=== PATIENT | male | born 1980 | race Caucasian/White ===

== ENCOUNTER 2018-01-09 11:06 | Day surgery (SDC) | payer OTHER, SELFPAY ==
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
--- NOTE | 2018-01-09 08:34 | PM.PREOP ---
Pre-operative Note Interval Note Pre-op Check: Yes History & Physical Reviewed by Physician and Yes Exam Performed Changes: No
[2018-01-09 08:39] VITALS: BMI 32.1
[2018-01-09 11:56] VITALS: BP 134/83; PULSE 65; RESP 15; TEMP 36; O2SAT 98; BMI 32.1
--- NOTE | 2018-01-09 13:30 | SUR.OPER ---
Supine on padded OR bed, head on pillow, arms secured on padded arm boards at <90 degrees abduction, legs uncrossed, safety belt at thigh, tape over blanket over lower legs.
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
[2018-01-09] MEDS: CLINDAMYCIN 900 MG/50 ML PIGGYBACK 5000 MG IV (14:10)
--- NOTE | 2018-01-09 14:10 | SUR.PREOP ---
Block start time [1352] . Monitoring initiated and maintained throughout procedure. Oxygen and medications given per anesthesiologist instructions. Patient remained stable throughout procedure, no adverse reactions noted. Block end time [1400]. pt remained stable and taken directly into the or by circulating rn after completion of block.
--- NOTE | 2018-01-09 14:50 | SUR.OPER ---
Supine on padded OR bed, head on pillow, arms secured on padded arm boards at <90 degrees abduction, legs uncrossed, safety belt at LOWER ABDOMEN, tape over blanket over LEFT lower leg. BUMP UNDER RIGHT HIP PER MD
--- NOTE | 2018-01-09 14:51 | PM.PROC.1 ---
Procedures Date/Time Date of procedure: 01/09/18 Time of procedure: 14:00 General Procedure description: Ultrasound guided popliteal sciatic nerve block for post op pain control after right ankle surgery requested by Dr. Perrin. Risk and benefits of procedure discussed with patient. ASA monitoring applied to patient. Oxygen given via nasal cannula. 1 mg Versed and 50 mcg fentanyl given for procedural sedation. Skin site was prepped with chlorhexidine and allowed to fully dry. Sterile gloves, mask, hat and probe cover were used to maintain sterility. 2% lidocaine and 30ga needle was used to make a small skin wheal at needle insertion site. Under ultrasound guidance, a 21ga 100mm Pajunk needle was directed near the division of the sciatic nerve into tibial and peroneal nerve in the popliteal fossa (lateral approach). Patient reported no parasthesias. After negative aspiration, 20 mL 0.5% ropivicaine and 10mg dexamethasone were injected around sciatic nerve. Patient tolerated procedure well.
[2018-01-09] MEDS: BUPIVACAINE 0.25% (PF) VIAL 30 ML INJ (15:00)
[2018-01-09 17:24] VITALS: BP 112/77; PULSE 80; RESP 13; TEMP 36.3; O2SAT 96
[2018-01-09 17:30] VITALS: BP 98/70; PULSE 82; RESP 14; O2SAT 96
[2018-01-09] MEDS: LACTATED RINGERS 1,000 ML 42 ML IV (17:33)
[2018-01-09 17:36] VITALS: BP 120/69; PULSE 92; RESP 15; TEMP 36.3; O2SAT 96
[2018-01-09 17:41] VITALS: BP 115/65; PULSE 91; RESP 17; TEMP 36.1; O2SAT 96
[2018-01-09 17:50] VITALS: BP 113/75; PULSE 85; RESP 16; TEMP 36.3; O2SAT 97
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
== END 2018-01-09 18:04 | disposition home or self-care (01) ==
PROVIDERS: Visit Provider Orthopaedic Surgery
PROC: 0SSF04Z Reposition Right Ankle Joint with Internal Fixation Device, Open Approach (ICD-10-PCS; CPT 27822; principal; 2018-01-09 13:15)
DX: S82.841P Displaced bimalleolar fracture of right lower leg, subsequent encounter for closed fracture with malunion (principal); G89.18 Other acute postprocedural pain; V29.9XXA Motorcycle rider (driver) (passenger) injured in unspecified traffic accident, initial encounter; I10 Essential (primary) hypertension; G47.33 Obstructive sleep apnea (adult) (pediatric); F43.10 Post-traumatic stress disorder, unspecified
CPT/HCPCS: 27822; 64450; 73610; 76001; 87070; 87075; 87077; 87147; 87205; J1100; J2250; J2405; J2704; J2795; J3010